=== PATIENT | female | born 1990 | race Caucasian/White ===

== ENCOUNTER 2018-02-20 15:02 | Emergency (ER) | payer OTHER, BC, SELFPAY ==
[2018-02-20] MEDS: NORCO, ANEXSIA 5/325MG TABLET (HYDROcodone/ACETAMINOPHEN) PO (17:46)
== END 2018-02-20 17:59 | disposition home or self-care (01) ==
LOC: M ED 15:02
DX: S90.411A Abrasion, right great toe, initial encounter (principal); W20.8XXA Other cause of strike by thrown, projected or falling object, initial encounter; Y92.512 Supermarket, store or market as the place of occurrence of the external cause; Y99.0 Civilian activity done for income or pay; G47.00 Insomnia, unspecified; Z79.899 Other long term (current) drug therapy
CPT/HCPCS: 73660

== ENCOUNTER → 2018-08-13 | Outpatient (REF) | payer BC ==
[2018-08-13 23:11] LABS: CHLAMYDIA DNA AMPLIFICATION NEGATIVE (NEGATIVE); GC DNA AMPLIFICATION NEGATIVE (NEGATIVE)
== END ==
LOC: M SFHCWAGY 11:53
DX: Z12.4 Encounter for screening for malignant neoplasm of cervix (principal); Z11.3 Encounter for screening for infections with a predominantly sexual mode of transmission
CPT/HCPCS: 87591

== ENCOUNTER → 2018-12-25 | Outpatient (CLI) | payer BC ==
[~2018-12-25] MED LIST: HYDR-3715 PO; NAPR-885 PO; ZONI100C2 PO
[2018-12-25 12:47] LABS: BASO % 0.4 % (0.0-1.0); EOS # 0.1 10^3/uL (0.0-0.50); EOS % 2.2 % (0.0-3.0); HEMATOCRIT 38.1 % (36.0-47.0); HEMOGLOBIN 12.3 g/dl (12.0-15.5); LYMPH # 1.6 10^3/uL (1.5-6.5); MEAN CORPUSCULAR HEMOGLOBIN 29.1 pg (27.0-33.0); MEAN CORPUSCULAR HGB CONC 32.3 g/dl (32.0-36.5); MEAN CORPUSCULAR VOLUME 90.1 fl (80.0-96.0); MONO # 0.3 10^3/uL (0.0-0.8); MONO % 5.1 % (0.0-5.0); NEUTROPHILS # 3.1 10^3/uL (1.8-7.7); NEUTROPHILS % 59.9 % (36.0-66.0); PLATELET COUNT, AUTOMATED 236 10^3/uL (150-450); RED BLOOD COUNT 4.23 10^6/uL (4.00-5.40); WHITE BLOOD COUNT 5.1 10^3/uL (4.0-10.0)
[2018-12-25 12:54] LABS: ALBUMIN 3.6 GM/DL (3.2-5.2); ALT/SGPT 10 U/L (12-78); BILIRUBIN,TOTAL 0.2 MG/DL (0.2-1.0); BLOOD UREA NITROGEN 6 MG/DL (7-18); CALCIUM LEVEL 8.8 MG/DL (8.5-10.1); CARBON DIOXIDE LEVEL 23 MEQ/L (21-32); CHLORIDE LEVEL 110 MEQ/L (98-107); CHOLESTEROL LEVEL 155 MG/DL (<200); CREATININE FOR GFR 0.76 MG/DL (0.55-1.30); GLOMERULAR FILTRATION RATE > 60.0 (>60); GLUCOSE, FASTING 89 MG/DL (70-100); HDL CHOLESTEROL 41 MG/DL (>40); LDL CHOLESTEROL 103 MG/DL (<100); NON-HDL-C 114 MG/DL; POTASSIUM SERUM 4.5 MEQ/L (3.5-5.1); SODIUM LEVEL 139 MEQ/L (136-145); TOTAL PROTEIN 6.7 GM/DL (6.4-8.2); TRIGLYCERIDES LEVEL 54 MG/DL (<150)
== END ==
LOC: M WUC 08:52
PROVIDERS: ATTEND Nurse Practitioner Family
DX: J01.90 Acute sinusitis, unspecified (principal); Z13.220 Encounter for screening for lipoid disorders

== ENCOUNTER 2021-09-10 15:31 | Emergency (ER) | payer BC, OTHER ==
[~2021-09-10] VITALS: Ht 160 cm; Wt 70.4 kg
[~2021-09-10 15:31] MED LIST changes: +ZONI100C17 PO; -ZONI100C2 PO
[2021-09-10] MEDS ORDERED: SETL1TAB (15:44)
[2021-09-10] MEDS ORDERED: PRED20TA (15:44)
[2021-09-10] MEDS ORDERED: CETI-24 (15:44)
[2021-09-10] MEDS ORDERED: PERM5CRE9 (15:44)
[2021-09-10] MEDS ORDERED: methylPREDNISolone 125MG 2ML VIAL IM ONE (16:30)
[2021-09-10] MEDS ORDERED: PRED20TA PO ×2 (18:07→18:11)
[2021-09-10] MEDS ORDERED: predniSONE 20 MG TAB PO ONE (18:15)
[2021-09-10 18:30] VITALS: BP 144/82
[2021-10-01] MEDS ORDERED: BENZ200C70 PO (10:59)
[2021-10-01] MEDS ORDERED: CIPR-249 PO (10:59)
[2021-10-01] MEDS ORDERED: DIFL150T PO (10:59)
[2021-10-01] MEDS ORDERED: METR-265 PO (10:59)
== END 2021-09-10 18:34 | disposition home or self-care (01) ==
LOC: M ED 15:31
DX: L50.9 Urticaria, unspecified (principal); Z79.3 Long term (current) use of hormonal contraceptives
CPT/HCPCS: 96372; 99283; J2930; J7512; U0002

== ENCOUNTER → 2022-05-24 | Outpatient (CLI) | payer BC, OTHER ==
[~2022-05-24] MED LIST changes: +BENZ200C70 PO; +CETI-24; +CIPR-249 PO; +DIFL150T PO; +METR-265 PO; +PERM5CRE9; +PRED20TA; +PRED20TA PO; +SETL1TAB; -ZONI100C17 PO; +ZONI100C67 PO
== END ==
LOC: M LABSMTC 09:11
PROVIDERS: ATTEND Anesthesiology
DX: Z01.818 Encounter for other preprocedural examination (principal); Z11.52 Encounter for screening for COVID-19

== ENCOUNTER 2022-05-26 06:48 | Day surgery (SDC) | payer OTHER ==
[~2022-05-26] VITALS: Ht 160 cm; Wt 73.5 kg
[~2022-05-26 06:48] MED LIST changes: +NS 1,000 ML IV ONE
[2022-05-26] MEDS ORDERED: LIDOCAINE 2% 100MG/5ML SDV (FOR ANES.) As Ordered ONE ×2 (07:02→07:03)
[2022-05-26] MEDS ORDERED: propofoL 200 MG/20 ML VIAL As Ordered ONE ×3 (07:02→07:05)
[2022-05-26] MEDS ORDERED: ONDANSETRON 4MG 2ML VIAL As Ordered ONE (07:27)
[2022-05-26 08:40] VITALS: BP 130/85
== END 2022-05-26 08:54 | disposition home or self-care (01) ==
LOC: M OPP 06:48
PROVIDERS: ATTEND Internal Medicine Gastroenterology
DX: K64.4 Residual hemorrhoidal skin tags (principal); K64.8 Other hemorrhoids; K63.89 Other specified diseases of intestine; R93.3 Abnormal findings on diagnostic imaging of other parts of digestive tract; K21.00 Gastro-esophageal reflux disease with esophagitis, without bleeding; K25.9 Gastric ulcer, unspecified as acute or chronic, without hemorrhage or perforation; K31.89 Other diseases of stomach and duodenum; G43.809 Other migraine, not intractable, without status migrainosus; Z79.3 Long term (current) use of hormonal contraceptives; Z79.818 Long term (current) use of other agents affecting estrogen receptors and estrogen levels; Z80.52 Family history of malignant neoplasm of bladder; Z80.8 Family history of malignant neoplasm of other organs or systems
CPT/HCPCS: 43239; 45380; 88305; J2405

== ENCOUNTER → 2022-06-08 | Outpatient (REF) | payer OTHER ==
[~2022-06-08] MED LIST changes: -NS 1,000 ML IV ONE
== END ==
LOC: M PLALAB 09:44
PROVIDERS: ATTEND Nurse Practitioner Family
DX: Z12.4 Encounter for screening for malignant neoplasm of cervix (principal); R87.612 Low grade squamous intraepithelial lesion on cytologic smear of cervix (LGSIL)

== ENCOUNTER → 2022-07-05 | Outpatient (REF) | payer OTHER | LOC: M SFHCWAGY 15:11 | PROVIDERS: ATTEND Specialist | DX: R87.612 Low grade squamous intraepithelial lesion on cytologic smear of cervix (LGSIL) (principal) ==

== ENCOUNTER 2022-09-01 13:04 | Emergency (ER) | payer OTHER ==
[~2022-09-01] VITALS: Ht 160 cm; Wt 69.0 kg
[2022-09-01] MEDS ORDERED: AZIT-12 (13:14)
[2022-09-01] MEDS ORDERED: POLY2.5S (13:14)
[2022-09-01] MEDS ORDERED: [UNRECOGNIZED DRUG - REMARK] (13:14)
[2022-09-01] MEDS ORDERED: ACETAMINOPHEN 500 MG TAB PO ONE (16:15)
[2022-09-01] MEDS ORDERED: METOCLOPRAMIDE INJ 10MG/2ML VIAL IV ONE (16:15)
[2022-09-01] MEDS ORDERED: methylPREDNISolone 125MG 2ML VIAL IV ONE (16:15)
[2022-09-01] MEDS ORDERED: NS 1,000 ML IV ONE (16:15)
[2022-09-01 16:19] VITALS: BP 122/81
[2022-09-01 17:13] LABS: MAGNESIUM LEVEL 1.9 MG/DL (1.8-2.4)
[2022-09-01 17:14] LABS: BLOOD UREA NITROGEN 6 MG/DL (9-23); CALCIUM LEVEL 9.2 MG/DL (8.5-10.1); CARBON DIOXIDE LEVEL 20 MMOL/L (20-31); CHLORIDE LEVEL 105 MMOL/L (98-107); CREATININE FOR GFR 0.84 MG/DL (0.55-1.30); GLOMERULAR FILTRATION RATE > 60.0 (>60); GLUCOSE, FASTING 84 MG/DL (60-100); POTASSIUM SERUM 4.1 MMOL/L (3.5-5.1); SODIUM LEVEL 138 MMOL/L (136-145)
[2022-09-01 17:22] LABS: BASO % 0.4 % (0.0-1.0); EOS % 0.2 % (0.0-3.0); HEMATOCRIT 36.5 % (36.0-47.0); HEMOGLOBIN 11.8 g/dl (12.0-15.5); LYMPH # 2.1 10^3/uL (1.5-5.0); LYMPH % 26.5 % (24.0-44.0); MEAN CORPUSCULAR HEMOGLOBIN 27.3 pg (27.0-33.0); MEAN CORPUSCULAR HGB CONC 32.3 g/dl (32.0-36.5); MEAN CORPUSCULAR VOLUME 84.5 fl (80.0-96.0); MONO # 0.3 10^3/uL (0.0-0.8); MONO % 3.1 % (2.0-8.0); NEUTROPHILS # 5.6 10^3/uL (1.5-8.5); NEUTROPHILS % 69.3 % (36.0-66.0); PLATELET COUNT, AUTOMATED 348 10^3/uL (150-450); RED BLOOD COUNT 4.32 10^6/uL (4.00-5.40)
[2022-09-01 18:28] LABS: HCG, SERUM QUALITATIVE NEGATIVE (NEGATIVE)
[2022-09-01] MEDS ORDERED: KETOROLAC 30 MG/ML 1ML VIAL IV ONE (19:15)
[2022-09-01] MEDS ORDERED: ALL10TAB2 PO (20:06)
[2022-09-01] MEDS ORDERED: PSEU120T19 PO (20:06)
== END 2022-09-01 20:29 | disposition home or self-care (01) ==
LOC: M ED 13:04
DX: J01.90 Acute sinusitis, unspecified (principal); R20.2 Paresthesia of skin
CPT/HCPCS: 70450; 70486; 80048; 83735; 84702; 84703; 85025; 96361; 96374; 96375; 99284; J1885; J2765; J2930

== ENCOUNTER → 2022-11-18 | Outpatient (CLI) | payer OTHER ==
[~2022-11-18] MED LIST changes: +ALL10TAB2 PO; +AZIT-12; +POLY2.5S; +PSEU120T19 PO; +[UNRECOGNIZED DRUG - REMARK]
== END ==
LOC: M RAD 14:23
PROVIDERS: ATTEND Family Medicine
DX: R06.02 Shortness of breath (principal)

== ENCOUNTER → 2022-12-05 | Outpatient (CLI) | payer OTHER | LOC: M CARPUL 09:15 | PROVIDERS: ATTEND Family Medicine | DX: R06.02 Shortness of breath (principal); R06.2 Wheezing ==

== ENCOUNTER → 2024-02-22 | Outpatient (CLI) | payer OTHER | LOC: M WHC 13:18 | PROVIDERS: ATTEND Nurse Practitioner Family | DX: N92.0 Excessive and frequent menstruation with regular cycle (principal); N85.8 Other specified noninflammatory disorders of uterus ==

== ENCOUNTER → 2024-05-15 | Outpatient (REF) | payer OTHER ==
[2024-05-18 12:02] LABS: HPV APTIMA Not Detected (Not Detected)
== END ==
LOC: M SFHCWAGY 10:14
PROVIDERS: ATTEND Nurse Practitioner Family
DX: Z12.4 Encounter for screening for malignant neoplasm of cervix (principal); Z11.51 Encounter for screening for human papillomavirus (HPV)
CPT/HCPCS: 87624; G0123